=== PATIENT | male | born 1990 | race Caucasian/White ===

== ENCOUNTER 2016-11-07 09:08 | Observation (INO) | payer OTHER ==
[2016-11-07] MEDS ORDERED: PROTONIX 40 MG IV IV ONE ×2 (09:33→10:11)
[2016-11-07] MEDS ORDERED: Zofran 4 MG/2 ML VIAL IV ONE (09:33)
[2016-11-07] MEDS ORDERED: Sodium Chloride 0.9% 1000 ML 1,000 ML IV STA (09:33)
[2016-11-07] MEDS ORDERED: Hydromorphone 1 mg/ml Ampule IV ONE (09:36)
--- NOTE | 2016-11-07 09:54 | ERPHSYRPT ---
- History of Present Illness Time Seen by Provider: 11/07/16 09:25 Historian: patient Exam Limitations: clinical condition Patient Subjective Stated Complaint: here for upper right abd pain since last night getting worse with nausea and loose stools, no fever Triage Nursing Assessment: pt walked in, alert , skin w/d.holding right upper abd, and soft with bsx4 tender to palpate to upper right quad Physician History: PATIENT WITH HISTORY OF DEPRESSION AND HYPERTENSION COMPLAINS OF ACUTE ONSET OF SHARP RIGHT UPPER ABDOMINAL PAINS CONSTANT SINCE EARLIER THIS AM, PAIN RADIATES TO BACK ASSOCIATED WITH LOOSE STOOLS AND NAUSEA. Timing/Duration: today Activities at Onset: none Quality: stabbing Abdominal Pain Onset Location: RUQ Pain Radiation: back Severity of Pain-Max: severe Severity of Pain-Current: severe Modifying Factors: Improves With: eating Associated Symptoms: diarrhea, nausea Previous symptoms: no prior history Allergies/Adverse Reactions: penicillin G Allergy (Verified 11/07/16 09:19) Sulfa (Sulfonamide Antibiotics) Allergy (Verified 11/07/16 09:19) Home Medications: Cetirizine HCl [Zyrtec] 10 mg PO DAILY 05/08/13 [History] Fluoxetine HCl [Prozac] 40 mg PO DAILY 05/08/13 [History] Lisinopril [Zestril] 20 mg PO DAILY 08/16/15 [History] Omeprazole 20 MG [Prilosec 20 mg] 20 mg PO BID 09/05/15 [History] Buspirone HCl [Buspar] 10 mg DAILY 11/07/16 [History] Loratadine 10 mg [Claritin 10 mg] 10 mg DAILY 11/07/16 [History] Hx Tetanus, Diphtheria Vaccination/Date Given: No Hx Influenza Vaccination/Date Given: No Hx Pneumococcal Vaccination/Date Given: No Immunizations Up to Date: Yes - Review of Systems Constitutional: No Fever, No Chills Eyes: No Symptoms Ears, Nose, & Throat: No Symptoms Respiratory: No Cough, No Dyspnea Cardiac: No Symptoms, No Chest Pain, No Edema, No Syncope Abdominal/Gastrointestinal: Abdominal Pain, Nausea, Diarrhea, No Vomiting Genitourinary Symptoms: No Symptoms, No Dysuria Musculoskeletal: No Symptoms, No Back Pain, No Neck Pain Skin: No Rash Neurological: No Dizziness, No Focal Weakness, No Sensory Changes Psychological: No Symptoms Endocrine: No Symptoms All Other Systems: Reviewed and Negative - Past Medical History Pertinent Past Medical History: Yes Neurological History: No Pertinent History ENT History: Other Cardiac History: Hypertension Respiratory History: Asthma Endocrine Medical History: No Pertinent History Musculoskeletal History: No Pertinent History GI Medical History: GERD, Ulcer History: Other Psycho-Social History: Depression Male Reproductive Disorders: No Pertinent History Other Medical History: allergies, - getting ear tubes eventually. hx kidney stones x2 - Past Surgical History Past Surgical History: Yes Neuro Surgical History: No Pertinent History Cardiac: No Pertinent History Respiratory: No Pertinent History Gastrointestinal: No Pertinent History Genitourinary: No Pertinent History Musculoskeletal: No Pertinent History Male Surgical History: No Pertinent History Other Surgical History: wisdon teeth,warts on rectum. - Social History Smoking Status: Current every day smoker How long have you smoked: 12 Exposure to second hand smoke: Yes Drug Use: none Patient Lives Alone: No - Nursing Vital Signs Nursing Vital Signs: Initial Vital Signs Temperature 97.2 F Temperature Source Oral Pulse Rate 72 Respiratory Rate 16 Blood Pressure [] 144/92 Pain Intensity 6 - Physical Exam General Appearance: no apparent distress, alert Eye Exam: PERRL/EOMI, eyes nml inspection Ears, Nose, Throat Exam: normal ENT inspection, pharynx normal, moist mucous membranes Neck Exam: normal inspection, non-tender, supple, full range of motion Respiratory Exam: normal breath sounds, lungs clear, No respiratory distress Cardiovascular Exam: regular rate/rhythm, normal heart sounds Gastrointestinal/Abdomen Exam: soft, normal bowel sounds, tenderness (THERE IS MARKED RIGHT UPPER QUADRANT TENDERNESS WITH GUARDING), No mass Back Exam: normal inspection, normal range of motion, No CVA tenderness, No vertebral tenderness Extremity Exam: normal inspection, normal range of motion, pelvis stable Neurologic Exam: alert, oriented x 3, cooperative, normal mood/affect, nml cerebellar function, sensation nml, No motor deficits Skin Exam: normal color, warm, dry SpO2 Interpretation: normal SpO2: 98 Oxygen Delivery: Room Air - CT Exams Abdomen/Pelvis CT Interpretation: Discussed w/radiologist (NEGATIVE CT ABDOMEN/PELVIS) Ordered Tests: Active Orders 24 hr Category Date Time Status Up Ad Na ROUTINE Activity 11/07/16 11:16 Ordered Admission/Status Order ROUTINE Care 11/07/16 11:13 Ordered Call Admit Doctor for Orders ON ADMISSION Care 11/07/16 11:13 Ordered Clean Catch Urine Specimen STAT Care 11/07/16 09:33 Active Code Status Order ROUTINE Care 11/07/16 11:13 Ordered IV Care Q6H Care 11/07/16 11:13 Ordered IV Insertion STAT Care 11/07/16 09:33 Active Vital Signs Q4H Care 11/07/16 11:13 Ordered NPO Diet 11/07/16 11:14 Ordered Regular Diet Diet 11/07/16 Dinner Ordered ABDOMEN AND PELVIS W CONTRAST [CT] Stat Exams 11/07/16 09:33 Completed AMYLASE Stat Lab 11/07/16 09:25 Completed BLOOD CULTURE Stat Lab 11/07/16 09:50 Received CBC W DIFF Stat Lab 11/07/16 09:25 Completed CMP Stat Lab 11/07/16 09:25 Completed LIPASE Stat Lab 11/07/16 09:25 Completed UA W/ MICROSCOPIC Stat Lab 11/07/16 09:25 Completed Transfer Order Routine Transfer 11/07/16 11:12 Ordered Medication Summary Generic Name Dose Route Start Last Admin Trade Name Freq PRN Reason Stop Dose Admin Sodium Chloride 1,000 mls @ 500 mls/hr 11/07/16 09:33 11/07/16 10:17 Sodium Chloride 0.9% 1000 Ml IV 11/07/16 11:32 500 mls/hr .Q2H STA Administration Sodium Chloride 1,000 mls @ 100 mls/hr 11/07/16 11:30 Sodium Chloride 0.9% 1000 Ml IV 12/07/16 11:29 .Q10H SARAHI Morphine Sulfate 4 mg 11/07/16 11:20 Morphine Sulfate 4 Mg Inj IV 11/12/16 11:19 Q4H PRN PRN PAIN Ondansetron HCl 4 mg 11/07/16 11:17 Zofran 4 Mg/2 Ml Vial IV 12/07/16 11:16 Q4HPRN PRN NAUSEA Pantoprazole Sodium 40 mg 11/07/16 11:30 Protonix 40 Mg Iv IV 12/07/16 11:29 Q24H SARAHI Discontinued Medications Generic Name Dose Route Start Last Admin Trade Name Freq PRN Reason Stop Dose Admin Al Hydrox/Mg Hydrox/Simethicone Confirm 11/07/16 10:50 Maalox Es 30 Ml Unit Dose Administered 11/07/16 10:51 Dose 30 ml .ROUTE .STK-MED ONE Belladonna Alkaloids/Phenobarbital 60 ml 11/07/16 10:43 11/07/16 10:55 Gi Cocktail 60ml (Belladonn/Phenobarb/Lidoc* PO 11/07/16 10:44 60 ml STAT ONE Administration Belladonna Alkaloids/Phenobarbital Confirm 11/07/16 10:51 Donnatol Liquid Administered 11/07/16 10:52 Dose 64.8 mg .ROUTE .STK-MED ONE Hydromorphone HCl 1 mg 11/07/16 09:36 11/07/16 10:17 Hydromorphone 1 Mg/Ml Ampule IV 11/07/16 09:37 1 mg STAT ONE Administration Hydromorphone HCl Confirm 11/07/16 10:12 Hydromorphone 1 Mg/Ml Ampule Administered 11/07/16 10:13 Dose 1 mg .ROUTE .STK-MED ONE Sodium Chloride Confirm 11/07/16 10:12 Sodium Chloride 0.9% 1000 Ml Administered 11/07/16 10:13 Dose 1,000 mls @ ud .ROUTE .STK-MED ONE Ketorolac Tromethamine 30 mg 11/07/16 10:43 11/07/16 10:54 Toradol 30 Mg Injection IV 11/07/16 10:44 30 mg STAT ONE Administration Ketorolac Tromethamine Confirm 11/07/16 10:49 Toradol 30 Mg Injection Administered 11/07/16 10:50 Dose 30 mg .ROUTE .STK-MED ONE Lidocaine HCl Confirm 11/07/16 10:50 Xylocaine Hcl Viscous * Administered 11/07/16 10:51 Dose 20 ml .ROUTE .STK-MED ONE Ondansetron HCl 4 mg 11/07/16 09:33 11/07/16 10:17 Zofran 4 Mg/2 Ml Vial IV 11/07/16 09:34 4 mg STAT ONE Administration Ondansetron HCl Confirm 11/07/16 10:11 Zofran 4 Mg/2 Ml Vial Administered 11/07/16 10:12 Dose 4 mg .ROUTE .STK-MED ONE Pantoprazole Sodium 40 mg 11/07/16 09:33 11/07/16 10:17 Protonix 40 Mg Iv IV 11/07/16 09:34 40 mg STAT ONE Administration Pantoprazole Sodium Confirm 11/07/16 10:11 Protonix 40 Mg Iv Administered 11/07/16 10:12 Dose 40 mg IV .STK-MED ONE Lab/Rad Data: Laboratory Result Diagrams 11/07/16 09:25 11/07/16 09:25 Laboratory Results 11/07/16 11/07/16 11/07/16 Range/Units 09:25 09:25 09:25 WBC 12.6 H (4.0-10.5) K/mm3 RBC 4.86 (4.1-5.6) M/mm3 Hgb 15.2 (12.5-18.0) gm/dl Hct 44.7 (42-50) % MCV 92.0 (78-100) fl MCH 31.3 (26-32) pg MCHC 34.0 (32-36) g/dl RDW 13.9 (11.5-14.0) % Plt Count 180 (150-450) K/mm3 MPV 12.9 H (6-9.5) fl Gran % 54.5 (36.0-66.0) % Lymphocytes % 36.3 (24.0-44.0) % Monocytes % 6.8 (0.0-12.0) % Eosinophils % 2.2 (0.00-5.0) % Basophils % 0.2 (0.0-0.4) % Basophils # 0.03 (0-0.4) Sodium 141 (136-145) mEq/L Potassium 4.0 (3.5-5.1) mEq/L Chloride 105 (98-107) mEq/L Carbon Dioxide 23.3 (21-32) mEq/L Anion Gap 16.5 H (5-15) MEQ/L BUN 16 (9-20) mg/dL Creatinine 0.91 (0.55-1.30) mg/dl Estimated GFR > 60 ML/MIN Glucose 102 (70-110) MG/DL Calcium 9.4 (8.5-10.1) mg/dL Total Bilirubin 0.30 (0.2-1.0) mg/dL AST 18 (15-37) U/L ALT 34 (12-78) U/L Alkaline Phosphatase 67 (46-116) U/L Serum Total Protein 8.1 (6.4-8.2) gm/dL Albumin 4.3 (3.4-5.0) g/dL Amylase 31 (25-115) U/L Lipase 118 (73-393) U/L Ur Collection Type VOID Urine Color YELLOW (YELLOW) Urine Appearance CLEAR (CLEAR) Urine pH 5.0 (5-6) Ur Specific [place] 1.030 (1.005-1.025) Urine Protein NEGATIVE (Negative) Urine Ketones NEGATIVE (NEGATIVE) Urine Blood 50 (0-5) Eduard/ul Urine Nitrite NEGATIVE (NEGATIVE) Urine Bilirubin NEGATIVE (NEGATIVE) Urine Urobilinogen NORMAL (0-1) mg/dL Ur Leukocyte Esterase NEGATIVE (NEGATIVE) Urine Microscopic RBC 0-2 (0-2) /HPF Urine Bacteria RARE (NEGATIVE) /HPF Urine Mucus MODERATE (NEGATIVE) /HPF Urine Glucose NEGATIVE (NEGATIVE) mg/dL Specimen Received 11/07/16 1005 - Progress Progress Note: 11/07/16 11:05 PATIENT GIVEN IV NORMAL SALINE 500ML/HR, ZOFRAN 4MG, PROTONIX 40MG IV AND DILAUDID 1MG, HAD RECURRENCE OF PAIN, ADMINISTERED TORADOL 30MG IV AND GI COCKTAIL Discussed with : Kedar (DISCUSSED WITH DR LEUNG AT 1100 FOR OBSERVATION) Counseled pt/family regarding: lab results, diagnosis, need for follow-up - Departure Time of Disposition: 11:25 Departure Disposition: Observation Clinical Impression: ACUTE GASTRITIS Condition: Stable Critical Care Time: No Referrals: KATARZYNA LEUNG [Primary Care Provider] -
[2016-11-07 10:09] LABS: BASOPHIL % 0.2 % (0.0-0.4); Eosinophil % 2.2 % (0.00-5.0); Granulocytes % 54.5 % (36.0-66.0); Lymphocytes % 36.3 % (24.0-44.0); Mean Corpuscular Hemoglobin 31.3 pg (26-32); Mean Platelet Volume 12.9 fl (6-9.5); Monocytes % 6.8 % (0.0-12.0); Platelet Count 180 K/mm3 (150-450); Red Blood Count 4.86 M/mm3 (4.1-5.6); Red Cell Distribution Width 13.9 % (11.5-14.0); White Blood Count 12.6 K/mm3 (4.0-10.5)
[2016-11-07] MEDS ORDERED: Zofran 4 MG/2 ML VIAL ONE (10:11)
[2016-11-07] MEDS ORDERED: Sodium Chloride 0.9% 1000 ML 1,000 ML ONE (10:12)
[2016-11-07] MEDS ORDERED: Hydromorphone 1 mg/ml Ampule ONE (10:12)
[2016-11-07 10:17] LABS: ADD URINE CULTURE? NO (NO); Bacteria RARE /HPF (NEGATIVE); Bilirubin NEGATIVE (NEGATIVE); Blood 50 Ery/ul (0-5); COMPLETE URINE MICROSCOPIC? YES; Collection Type VOID; Glucose NEGATIVE (NEGATIVE); Leukocyte Esterase NEGATIVE (NEGATIVE); Mucus MODERATE /HPF (NEGATIVE)
--- NOTE | 2016-11-07 10:27 | XRAY ---
Indication: Right abdominal pain. Multiple contiguous axial images obtained through the abdomen and pelvis using 80 cc Isovue 370 contrast only. Comparison: May 08, 2013. Lung bases clear. Heart is not enlarged. Noncontrasted stomach and bowel loops appear nonobstructed. Normal appendix. No free fluid/air. Remaining liver, gallbladder, pancreas, spleen, adrenal glands, kidneys, ureters, bladder, and aorta appear normal in CT appearance and attenuation. No pathologic retroperitoneal lymphadenopathy. Osseous structures intact. Impression: Negative CT abdomen/pelvis with contrast exam. CT DI 27.80
[2016-11-07 10:32] LABS: ALBUMIN 4.3 g/dL (3.4-5.0); ALKALINE PHOSPHATASE 67 U/L (46-116); ANION GAP 16.5 MEQ/L (5-15); BLOOD UREA NITROGEN 16 mg/dL (9-20); CHLORIDE 105 mEq/L (98-107); Carbon Dioxide 23.3 mEq/L (21-32); Glucose 102 MG/DL (70-110); LIPASE 118 U/L (73-393); SGOT/AST 18 U/L (15-37); SGPT/ALT 34 U/L (12-78); SODIUM 141 mEq/L (136-145); Total Protein 8.1 gm/dL (6.4-8.2)
[2016-11-07] MEDS ORDERED: GI COCKTAIL 60ML (Belladonn/Phenobarb/Lidoc PO ONE (10:43)
[2016-11-07] MEDS ORDERED: TORAdol 30 mg Injection IV ONE (10:43)
[2016-11-07] MEDS ORDERED: TORAdol 30 mg Injection ONE (10:49)
[2016-11-07] MEDS ORDERED: MAALOX ES 30 ML UNIT DOSE ONE (10:50)
[2016-11-07] MEDS ORDERED: XYLOCAINE HCl Viscous ONE (10:50)
[2016-11-07] MEDS ORDERED: Donnatol Liquid ONE (10:51)
[2016-11-07] MEDS ORDERED: Zofran 4 MG/2 ML VIAL IV PRN (11:17)
[2016-11-07] MEDS ORDERED: MORPHINE SULFATE 4 MG INJ IV PRN (11:20)
[2016-11-07] MEDS: Sodium Chloride 0.9% 1000 ML 1,000 ML IV SCH ×2 (12:42→23:06)
[2016-11-07] MEDS: Zestril 20 MG PO SCH (12:43)
[2016-11-07] MEDS ORDERED: Nicoderm CQ 21 MG TOP SCH (14:15)
[2016-11-07] MEDS ORDERED: PROTONIX 40 MG IV IV SCH (16:15)
[2016-11-07] MEDS ORDERED: Protonix 40MG Tablet PO SCH (22:00)
[2016-11-07] MEDS ORDERED: TYLENOL 325 MG PO PRN (23:32)
[2016-11-08 05:45] LABS: BASOPHIL % 0.4 % (0.0-0.4); Granulocytes % 46.7 % (36.0-66.0); Lymphocytes % 42.2 % (24.0-44.0); Mean Cell Volume 92.3 fl (78-100); Mean Corpuscular Hemoglobin 30.4 pg (26-32); Mean Platelet Volume 11.9 fl (6-9.5); Monocytes % 7.7 % (0.0-12.0); Platelet Count 170 K/mm3 (150-450); Red Blood Count 4.15 M/mm3 (4.1-5.6); Red Cell Distribution Width 13.7 % (11.5-14.0); White Blood Count 7.7 K/mm3 (4.0-10.5)
[2016-11-08 06:26] LABS: ALBUMIN 3.4 g/dL (3.4-5.0); ALKALINE PHOSPHATASE 51 U/L (46-116); ANION GAP 8.9 MEQ/L (5-15); BLOOD UREA NITROGEN 12 mg/dL (9-20); CHLORIDE 108 mEq/L (98-107); Carbon Dioxide 29.6 mEq/L (21-32); Glucose 87 MG/DL (70-110); LIPASE 109 U/L (73-393); Potassium 4.1 mEq/L (3.5-5.1); SGOT/AST 20 U/L (15-37); SGPT/ALT 12 U/L (12-78); SODIUM 142 mEq/L (136-145); Total Protein 6.4 gm/dL (6.4-8.2)
--- NOTE | 2016-11-08 07:09 | PCM.DCORD ---
- Discharge Discharge Date: 11/08/16 Disposition: Home, Self-Care Condition: Stable Prescriptions: Continue Fluoxetine HCl [Prozac] 40 mg PO DAILY Omeprazole 20 MG [Prilosec 20 mg] 20 mg PO BID Loratadine 10 mg [Claritin 10 mg] 10 mg PO DAILY Buspirone HCl [Buspar] 10 mg PO DAILY Famotidine 20 mg [Pepcid 20 MG] 40 mg PO DAILY Fluticasone Propionate [Flonase NASAL] 1 spray NS DAILY Additional Instructions: Please continue your home medications. Advance diet as tolerated. please follow up in one week. Follow up with: KATARZYNA LEUNG [Primary Care Provider] -
[2016-11-08 08:25] VITALS: BP 129/73; PULSE 64; O2SAT 96
--- NOTE | 2016-11-08 08:45 | SSS ---
DISCHARGE DIAGNOSIS: EPIGASTRIC PAIN ETIOLOGY UNDETERMINED. HISTORY OF PRESENT ILLNESS: The patient is a 26 year-old white male patient who awoke with severe epigastric pain on the morning of 11/07/2016. He presented himself to the emergency room and subsequently admitted to the hospital due to severity of pain for evaluation and management. PAST MEDICAL/SURGICAL HISTORY: Significant for having had his gallbladder evaluated by ultrasound and HIDA one year ago. HOSPITAL COURSE: The patient reports that in the interim between last year and now he had no problems whatsoever until the compliance advisor of 11/07/2016. After his presentation to the emergency room and admission to the hospital he did improve and by the time I saw him in the early afternoon he was already much better. We allowed him to have a liquid diet and through the evening made NPO with the possibility of doing laparoscope on the morning of 11/08/2016. However, he told me he was feeling much better by the morning of 11/08/2016. The patient was allowed to take increase in his diet and having felt no worse at this point he was felt to be okay for discharge home. The patient's medical history is otherwise significant for depression. He is on Paxil that he takes daily and has been quite stable with this. MEDICATIONS: He otherwise takes Zestril for hypertension, omeprazole for gastroesophageal reflux disease, Buspar, Claritin and Zyrtec. ALLERGIES: PENICILLIN, SULFA. PHYSICAL EXAMINATION: Revealed a well nourished, well developed 26 year-old white male patient currently in no distress. His most recent emergency room vital signs showed temperature 97.2F oral, pulse 72, respiratory rate 16, blood pressure 144/92. HEENT: Normocephalic, atraumatic. Pupils equal round reactive to light. Extraocular movements intact. Oropharynx is pink and moist. NECK: Supple without lymphadenopathy, thyromegaly or JVD. CHEST: Clear to auscultation with good air movement bilaterally. HEART: Regular rate and rhythm without murmurs, rubs or gallops. ABDOMEN: Tender in the epigastric region. No guarding or rebound was noted at the time of my evaluation. The emergency room doctor noted that there was guarding present during his exam. There were no palpable masses felt. EXTREMITIES: Without clubbing, cyanosis or edema. NEUROLOGIC: The patient is alert and oriented x3. No focal deficits noted. LAB DATA AND TESTS: Normal UA with specific gravity of 1.030. Normal metabolic panel. Amylase and lipase were normal. CBC showed slight elevation of white blood cell count of 12,600, hemoglobin 15.2, PLT count 180,000. CT scan abdomen and pelvis was read as negative. ASSESSMENT: A patient with epigastric pain unknown etiology resolved at this time. The patient will be allowed to discharge home. Continue his usual home medication, follow up in the office if he has any further problems in the interim. He is to call or return if he has recurrence of the severe abdominal pain that he had previously.
[2016-11-08] MEDS: Zestril 20 MG PO SCH (09:11)
[2016-11-08] MEDS ORDERED: NON-FORMULARY ITEM (Fluoxetine Hcl [Prozac] 40 MG) PO SCH (10:00)
[2016-11-08] MEDS ORDERED: Prozac 20 MG PO SCH (10:00)
[2016-11-08] MEDS ORDERED: PROTONIX 40 MG IV IV SCH ×2 (10:00)
[2016-11-08] MEDS ORDERED: Pepcid 20 MG PO SCH (10:00)
[2016-11-08] MEDS ORDERED: Flonase NASAL NS SCH (10:00)
[2016-11-08] MEDS ORDERED: CLARITIN 10 MG PO SCH (10:00)
[2016-11-08] MEDS ORDERED: BUSPAR 5 MG PO SCH (10:00)
== END 2016-11-08 10:35 | disposition home or self-care (01) ==
LOC: ED 09:08 → MED SURG 11:49
PROVIDERS: ADMIT Family Medicine; ATTEND Family Medicine
DX: R10.13 Epigastric pain (principal); I10 Essential (primary) hypertension; K21.9 Gastro-esophageal reflux disease without esophagitis
CPT/HCPCS: 36000; 36415; 74177; 80053; 81000; 82150; 83690; 85025; 87040; 96360; 96374; 96375; 99285; G0378; J1170; J1885; J2270; J2405; A9270-GY

== ENCOUNTER 2016-12-10 05:37 | Emergency (ER) | payer OTHER ==
[2016-12-10 05:51] VITALS: O2SAT 97
[2016-12-10] MEDS ORDERED: Pepcid 20 MG VIAL IV ONE ×2 (06:02→06:06)
[2016-12-10] MEDS ORDERED: Hydromorphone 1 mg/ml Ampule IV ONE (06:02)
[2016-12-10] MEDS ORDERED: Hydromorphone 1 mg/ml Ampule ONE (06:07)
[2016-12-10] MEDS ORDERED: Sodium Chloride 0.9% 1000 ML 1,000 ML ONE (06:07)
[2016-12-10] MEDS ORDERED: BENADRYL 50 MG/ML IV ONE (06:09)
--- NOTE | 2016-12-10 06:09 | ERPHSYRPT ---
- History of Present Illness Historian: patient, family (mom) Exam Limitations: clinical condition Patient Subjective Stated Complaint: pt states he started having abd pain around 0300. states he has had this kind of pain previously and was hospitalized Triage Nursing Assessment: pt alert and oriented, answers questions approp. skin pink warm and dry. lungs cta. abd soft and nontender, bowel osunds present. pt c/o pain in ruq radiating to epigastric area. Physician History: Approximately 3 AM patient has severe onset of upper abdominal quadrant pain that became more generalized. Initially had no nausea after ER admission developed some. Pain did radiate straight to his back. No diarrhea. No fever chills. Patient had pizza prior to this episode. Patient was admitted with severe abdominal pain very similar to this approximately one month ago and discharged for outpatient workup which did not materialize. No recent abdominal trauma. No fever or chills.NEGATIVE cat SCAN AT THAT TIME.PREVIOUS HISTORY OF PEPTIC ULCER DISEASE AND GERD. Timing/Duration: today Activities at Onset: none Quality: aching, burning, cramping, stabbing, throbbing Abdominal Pain Onset Location: RUQ, epigastric Pain Radiation: back (upper) Severity of Pain-Max: severe Severity of Pain-Current: severe Modifying Factors: Improves With: lying down, movement, palpation, position Associated Symptoms: No diarrhea, No fever/chills, No loss of appetite, No nausea, No vomiting, No weakness Previous symptoms: same symptoms as today Allergies/Adverse Reactions: penicillin G Allergy (Verified 12/10/16 05:51) Swelling Sulfa (Sulfonamide Antibiotics) Allergy (Verified 12/10/16 05:51) Swelling Home Medications: Fluoxetine HCl [Prozac] 40 mg PO DAILY 05/08/13 [History] Omeprazole 20 MG [Prilosec 20 mg] 20 mg PO BID 09/05/15 [History] Buspirone HCl [Buspar] 10 mg PO DAILY 11/07/16 [History] Famotidine 20 mg [Pepcid 20 MG] 40 mg PO DAILY 11/07/16 [History] Fluticasone Propionate [Flonase NASAL] 1 spray NS DAILY 11/07/16 [History] Loratadine 10 mg [Claritin 10 mg] 10 mg PO DAILY 11/07/16 [History] Hx Tetanus, Diphtheria Vaccination/Date Given: No Hx Influenza Vaccination/Date Given: No Hx Pneumococcal Vaccination/Date Given: No - Review of Systems Constitutional: No Symptoms Eyes: No Symptoms Ears, Nose, & Throat: No Symptoms, Throat Swelling Cardiac: No Symptoms Abdominal/Gastrointestinal: Abdominal Pain, Nausea, No Vomiting, No Diarrhea, No Constipation, No Hematemesis, No Appetite Changes Genitourinary Symptoms: No Symptoms Musculoskeletal: No Symptoms Skin: No Symptoms Neurological: No Symptoms Psychological: No Symptoms Endocrine: No Symptoms Hematologic/Lymphatic: No Symptoms Immunological/Allergic: No Symptoms - Past Medical History Pertinent Past Medical History: Yes Neurological History: No Pertinent History ENT History: Other Cardiac History: Hypertension Respiratory History: Asthma Endocrine Medical History: No Pertinent History Musculoskeletal History: No Pertinent History GI Medical History: GERD, Ulcer History: Other Psycho-Social History: Depression Male Reproductive Disorders: No Pertinent History Other Medical History: allergies, - getting ear tubes eventually. hx kidney stones x2 - Past Surgical History Past Surgical History: Yes Neuro Surgical History: No Pertinent History Cardiac: No Pertinent History Respiratory: No Pertinent History Gastrointestinal: No Pertinent History Genitourinary: No Pertinent History Musculoskeletal: No Pertinent History Male Surgical History: No Pertinent History Other Surgical History: wisdon teeth,warts on rectum. - Social History Smoking Status: Current every day smoker How long have you smoked: 13 Exposure to second hand smoke: Yes Drug Use: none Patient Lives Alone: Yes - Nursing Vital Signs Nursing Vital Signs: Initial Vital Signs Temperature 97.7 F 12/10/16 05:44 Pulse Rate 75 12/10/16 05:44 Respiratory Rate 24 12/10/16 05:44 Blood Pressure 187/113 12/10/16 05:44 O2 Sat by Pulse Oximetry 97 12/10/16 05:44 Pain Scale Pain Intensity 4 - Physical Exam General Appearance: severe distress, obese Eye Exam: PERRL/EOMI Ears, Nose, Throat Exam: normal ENT inspection Neck Exam: normal inspection Respiratory Exam: normal breath sounds, lungs clear Cardiovascular Exam: regular rate/rhythm, normal heart sounds, normal peripheral pulses Gastrointestinal/Abdomen Exam: tenderness (DIFFUSE UPPER ABDOMINAL TENDERNESS MORE EPIGASTRIC AND RIGHT, POSITIVE Benson SIGN), guarding ( MILD GUARDING), No rebound, No hernia Male Genitalia Exam: normal genitalia (NO REBOUND OR RIGIDITY. nO HERNIA) Rectal Exam: deferred Back Exam: normal inspection, normal range of motion, No CVA tenderness Extremity Exam: normal inspection, normal range of motion Neurologic Exam: alert, oriented x 3, cooperative, carton stamper II-XII nml as tested Skin Exam: normal color, warm, dry SpO2 Interpretation: normal SpO2: 97 Oxygen Delivery: Room Air Ordered Tests: Active Orders 24 hr Category Date Time Status IV Insertion STAT Care 12/10/16 06:02 Active NPO (ED) STAT Care 12/10/16 06:02 Active AMYLASE Stat Lab 12/10/16 06:10 Completed CBC W DIFF Stat Lab 12/10/16 06:10 Completed CMP Stat Lab 12/10/16 06:10 Completed LIPASE Stat Lab 12/10/16 06:10 Completed Medication Summary Generic Name Dose Route Start Last Admin Trade Name Freq PRN Reason Stop Dose Admin Sodium Chloride 1,000 mls @ 125 mls/hr 12/10/16 06:15 12/10/16 06:08 Sodium Chloride 0.9% 1000 Ml IV 01/09/17 06:14 125 mls/hr .Q8H SARAHI Administration Discontinued Medications Generic Name Dose Route Start Last Admin Trade Name Freq PRN Reason Stop Dose Admin Al Hydrox/Mg Hydrox/Simethicone Confirm 12/10/16 08:01 Maalox Es 30 Ml Unit Dose Administered 12/10/16 08:02 Dose 30 ml .ROUTE .STK-MED ONE Belladonna Alkaloids/Phenobarbital 60 ml 12/10/16 07:51 12/10/16 08:04 Gi Cocktail 60ml (Belladonn/Phenobarb/Lidoc* PO 12/10/16 07:52 60 ml STAT ONE Administration Belladonna Alkaloids/Phenobarbital Confirm 12/10/16 08:02 Donnatol Liquid Administered 12/10/16 08:03 Dose 64.8 mg .ROUTE .STK-MED ONE Diphenhydramine HCl 25 mg 12/10/16 06:09 12/10/16 06:13 Benadryl 50 Mg/Ml IV 12/10/16 06:10 25 mg STAT ONE Administration Diphenhydramine HCl Confirm 12/10/16 06:12 Benadryl 50 Mg/Ml Administered 12/10/16 06:13 Dose 50 mg .ROUTE .STK-MED ONE Famotidine 20 mg 12/10/16 06:02 12/10/16 06:08 Pepcid 20 Mg Vial IV 12/10/16 06:03 20 mg STAT ONE Administration Famotidine Confirm 12/10/16 06:06 Pepcid 20 Mg Vial Administered 12/10/16 06:07 Dose 20 mg IV .STK-MED ONE Hydromorphone HCl 1 mg 12/10/16 06:02 12/10/16 06:08 Hydromorphone 1 Mg/Ml Ampule IV 12/10/16 06:03 1 mg STAT ONE Administration Hydromorphone HCl Confirm 12/10/16 06:07 Hydromorphone 1 Mg/Ml Ampule Administered 12/10/16 06:08 Dose 1 mg .ROUTE .STK-MED ONE Lidocaine HCl Confirm 12/10/16 08:01 Xylocaine Hcl Viscous * Administered 12/10/16 08:02 Dose 20 ml .ROUTE .STK-MED ONE Ondansetron HCl Confirm 12/10/16 06:10 Zofran 4 Mg/2 Ml Vial Administered 12/10/16 06:11 Dose 4 mg .ROUTE .STK-MED ONE Lab/Rad Data: Laboratory Result Diagrams 12/10/16 06:10 12/10/16 06:10 Laboratory Results 12/10/16 12/10/16 Range/Units 06:10 06:10 WBC 11.1 H (4.0-10.5) K/mm3 RBC 4.36 (4.1-5.6) M/mm3 Hgb 13.4 (12.5-18.0) gm/dl Hct 40.1 L (42-50) % MCV 92.0 (78-100) fl MCH 30.7 (26-32) pg MCHC 33.4 (32-36) g/dl RDW 14.1 H (11.5-14.0) % Plt Count 211 (150-450) K/mm3 MPV 11.7 H (6-9.5) fl Gran % 51.5 (36.0-66.0) % Lymphocytes % 39.0 (24.0-44.0) % Monocytes % 6.9 (0.0-12.0) % Eosinophils % 2.3 (0.00-5.0) % Basophils % 0.3 (0.0-0.4) % Basophils # 0.03 (0-0.4) Sodium 143 (136-145) mEq/L Potassium 3.8 (3.5-5.1) mEq/L Chloride 107 (98-107) mEq/L Carbon Dioxide 26.3 (21-32) mEq/L Anion Gap 13.9 (5-15) MEQ/L BUN 15 (9-20) mg/dL Creatinine 0.97 (0.55-1.30) mg/dl Estimated GFR > 60 ML/MIN Glucose 110 (70-110) MG/DL Calcium 9.3 (8.5-10.1) mg/dL Total Bilirubin 0.20 (0.2-1.0) mg/dL AST 20 (15-37) U/L ALT 40 (12-78) U/L Alkaline Phosphatase 58 (46-116) U/L Serum Total Protein 7.8 (6.4-8.2) gm/dL Albumin 4.0 (3.4-5.0) g/dL Amylase 31 (25-115) U/L Lipase 110 (73-393) U/L - Progress Progress: improved, re-examined Progress Note: 12/10/16 08:01Patient markedly improved, had no recurrence of his symptoms over past month following suspect diet until he had pizza last evening. Lab results negative. Patient had extensive gallbladder workup here before that was negative including HIDA scan. We'll treat with GI cocktail at this time and hopefully discharge soon thereafter. 12/10/16 08:15Patient with no abdominal pain at this time after GI cocktail and previous treatment. Discharged at this time see discharge diagnosis and instructions with emphasis on follow up. - Departure Time of Disposition: 08: Departure Disposition: Home Clinical Impression: Peptic ulcer disease Abdominal pain Qualifiers: Abdominal location: epigastric Qualified Code(s): R10.13 - Epigastric pain Acute gastritis Qualifiers: Gastritis type: other gastritis Gastritis bleeding: without bleeding Qualified Code(s): K29.00 - Acute gastritis without bleeding GERD (gastroesophageal reflux disease) Qualifiers: Esophagitis presence: esophagitis presence not specified Qualified Code(s): K21.9 - Gastro-esophageal reflux disease without esophagitis Condition: Stable Critical Care Time: No Referrals: KATARZYNA THACKER [Primary Care Provider] - Instructions: Rand Diet, Gastroesophageal Reflux Disease (GERD), Abdominal Pain-Adult, Peptic Ulcer, GERD Diet Additional Instructions: "Continue with her medications and follow your diet strictly. Follow with Dr. Thacker as soon as possible for further evaluation treatment and possible referral/consultation gastroenterology if you so desire.return to ER for any significant concerns or issues.
[2016-12-10] MEDS ORDERED: Zofran 4 MG/2 ML VIAL ONE (06:10)
[2016-12-10] MEDS ORDERED: BENADRYL 50 MG/ML ONE (06:12)
[2016-12-10 06:13] LABS: BASOPHIL % 0.3 % (0.0-0.4); Eosinophil % 2.3 % (0.00-5.0); Granulocytes % 51.5 % (36.0-66.0); Mean Corpuscular Hemoglobin 30.7 pg (26-32); Mean Platelet Volume 11.7 fl (6-9.5); Monocytes % 6.9 % (0.0-12.0); Platelet Count 211 K/mm3 (150-450); Red Blood Count 4.36 M/mm3 (4.1-5.6); Red Cell Distribution Width 14.1 % (11.5-14.0); White Blood Count 11.1 K/mm3 (4.0-10.5)
[2016-12-10] MEDS ORDERED: Sodium Chloride 0.9% 1000 ML 1,000 ML IV SCH (06:15)
[2016-12-10 06:49] LABS: ALKALINE PHOSPHATASE 58 U/L (46-116); ANION GAP 13.9 MEQ/L (5-15); BLOOD UREA NITROGEN 15 mg/dL (9-20); CHLORIDE 107 mEq/L (98-107); Carbon Dioxide 26.3 mEq/L (21-32); Glucose 110 MG/DL (70-110); LIPASE 110 U/L (73-393); Potassium 3.8 mEq/L (3.5-5.1); SGOT/AST 20 U/L (15-37); SGPT/ALT 40 U/L (12-78); SODIUM 143 mEq/L (136-145); Total Protein 7.8 gm/dL (6.4-8.2)
[2016-12-10] MEDS ORDERED: GI COCKTAIL 60ML (Belladonn/Phenobarb/Lidoc PO ONE (07:51)
[2016-12-10] MEDS ORDERED: MAALOX ES 30 ML UNIT DOSE ONE (08:01)
[2016-12-10] MEDS ORDERED: XYLOCAINE HCl Viscous ONE (08:01)
[2016-12-10] MEDS ORDERED: Donnatol Liquid ONE (08:02)
[2016-12-10 08:34] VITALS: BP 144/70; PULSE 84
== END 2016-12-10 08:33 | disposition home or self-care (01) ==
LOC: ED 05:37
DX: R10.13 Epigastric pain (principal); K29.00 Acute gastritis without bleeding; K21.9 Gastro-esophageal reflux disease without esophagitis; K27.9 Peptic ulcer, site unspecified, unspecified as acute or chronic, without hemorrhage or perforation
CPT/HCPCS: 36000; 36415; 80053; 82150; 83690; 85025; 96360; 96361; 96374; 96375; 99284; J1170; J1200; J2405; A9270-GY

== ENCOUNTER 2018-09-11 16:17 | Emergency (ER) | payer OTHER ==
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
[2018-09-11 18:17] VITALS: PULSE 70; O2SAT 98
[2018-09-11 18:24] VITALS: BP 114/72
--- NOTE | 2018-09-11 21:25 | XRAY ---
Indication: Pain following injury 3 days ago. Comparison: None 3 views of the right wrist obtained. No bony, articular, or soft tissue abnormalities.
== END 2018-09-11 18:24 | disposition home or self-care (01) ==
LOC: ED 16:17
DX: S63.501A Unspecified sprain of right wrist, initial encounter (principal); M25.531 Pain in right wrist; W22.09XA Striking against other stationary object, initial encounter
CPT/HCPCS: 73110; 99283

== ENCOUNTER 2021-06-05 05:59 | Day surgery (SDC) | payer OTHER ==
[2021-06-05] MEDS ORDERED: Lactated Ringers 1,000 ML IV ONE (06:26)
[2021-06-05] MEDS: Lactated Ringers 1,000 ML IV SCH (06:31)
[2021-06-05] MEDS ORDERED: Xylocaine-Mpf 2% 5 Ml Vial ONE (07:34)
[2021-06-05] MEDS ORDERED: Versed 2 MG/2 ML Injection ONE (07:34)
[2021-06-05] MEDS ORDERED: DIPRIVAN 200 MG/20 ML IV ONE ×2 (07:34→07:48)
[2021-06-05] MEDS ORDERED: SUBLIMAZE 100 MCG/2 ML ONE (07:34)
[2021-06-05] MEDS ORDERED: XYLOCAINE 1% HCL 20 ML MDV ONE (07:40)
[2021-06-05] MEDS: VANCOMYCIN 2 GRAM/400 ML BAG 2 GM/400 ML PIGGYBACK IV ONE (08:32)
[2021-06-05 09:21] VITALS: BP 160/84; PULSE 74; O2SAT 99
--- NOTE | 2021-06-05 09:25 | OP ---
SURGERY DATE/TIME: 06/05/2021 0734 PREOPERATIVE DIAGNOSIS: Infected sebaceous cyst posterior region of the neck. POSTOPERATIVE DIAGNOSIS: Infected sebaceous cyst posterior region of the neck. PROCEDURE: Incision and drainage and Iodoform packing of the infected sebaceous cyst. SURGEON: Dr. Thacker. ANESTHESIA: MAC. HISTORY: The patient is a 30-year-old white male patient with a sebaceous cyst on the back of his neck which became infected. He was seen in the office and given clindamycin which did not help. He was seen in the [facility] and received Rocephin injection after which it seemed to be somewhat better but when I saw him in the office it was quite edematous on 06/04/2021 and we felt the patient needed to have I&D. The patient was described the risks of the procedure including risk of bleeding and recurrent infection. The patient verbalized his understanding and desired to have the procedure performed. DESCRIPTION OF PROCEDURE: The patient was given the anesthesia by the anesthesia department. He was placed in the left lateral decubitus position. The area is anesthetized further with lidocaine. An incision was made over the center portion of it and a large amount of pus was removed as well as suture material from the wound. It was copiously drained and washed and Iodoform packing was placed into the draining and the dressing is then applied. The patient was allowed to take that to the outpatient area where he will receive Rocephin intravenously 1 gm prior to going home and we will have him come back each day for Iodoform gauze removal and repacking in outpatient surgery.
== END 2021-06-05 10:45 | disposition home or self-care (01) ==
LOC: SDC 05:59
PROVIDERS: ATTEND Family Medicine
DX: L72.3 Sebaceous cyst (principal)
CPT/HCPCS: 87070; 96365; 96366; J2250; J2704; J3010; J3370

== ENCOUNTER 2021-09-06 10:01 | Day surgery (SDC) | payer OTHER ==
--- NOTE | 2021-08-31 11:29 | HP ---
DATE OF SURGERY: 09/06/2021 HISTORY OF PRESENT ILLNESS: The patient presented with a sebaceous cyst of the posterior neck. It has not been infected. He desires removal. PAST MEDICAL HISTORY: Sleep apnea, hypertension, chronic pancreatitis. PAST SURGICAL HISTORY: Ankle surgery. Foot surgery. Cholecystectomy. ALLERGIES: PENICILLIN. SULFA. CIPRO. MEDICATIONS: Prilosec, lisinopril, tramadol, Pepcid, Prozac, amlodipine. FAMILY HISTORY: Heart disease. SOCIAL HISTORY: Former alcohol. REVIEW OF SYSTEMS: CONSTITUTIONAL: Denies fever or chills. CHEST: Denies shortness of breath. CVS: Denies chest pain. ABDOMEN: Denies abdominal pain. PHYSICAL EXAMINATION: GENERAL: No acute distress. CHEST: Nonlabored. No shortness of breath. CVS: Regular rate and rhythm. ABDOMEN: Soft. IMPRESSION: Sebaceous cyst of the posterior neck. PLAN: Excision of posterior neck cyst with Dr. Michael Ortiz. As dictated by Sabrina Houser NP.
[~2021-09-06 10:01] MED LIST: Sensorcaine 0.25% 10 ML ONE
[2021-09-06] MEDS ORDERED: Lactated Ringers 1,000 ML IV SCH (10:30)
[2021-09-06] MEDS ORDERED: Lactated Ringers 1,000 ML IV ONE (10:45)
[2021-09-06] MEDS ORDERED: Reglan 10 MG/2 ML ONE (11:15)
[2021-09-06] MEDS ORDERED: Versed 2 MG/2 ML Injection ONE (11:15)
[2021-09-06] MEDS ORDERED: Pepcid 20 MG VIAL IV ONE (11:15)
[2021-09-06] MEDS ORDERED: Reglan 10 MG/2 ML IV ONE (11:23)
[2021-09-06] MEDS ORDERED: Versed 2 MG/2 ML Injection IV STA (11:23)
[2021-09-06] MEDS: Pepcid 20 MG VIAL IV ONE ×2 (11:24→11:25)
[2021-09-06] MEDS ORDERED: Quelicin Fliptop 200 MG/10 ML ONE (11:51)
[2021-09-06] MEDS ORDERED: Decadron 4 MG INJ ONE (11:51)
[2021-09-06] MEDS ORDERED: Zemuron 100 MG/10 ML ONE (11:51)
[2021-09-06] MEDS ORDERED: Xylocaine-Mpf 2% 5 Ml Vial ONE (11:51)
[2021-09-06] MEDS ORDERED: Zofran 4 MG/2 ML VIAL ONE (11:51)
[2021-09-06] MEDS ORDERED: DIPRIVAN 200 MG/20 ML IV ONE (11:51)
[2021-09-06] MEDS ORDERED: SUBLIMAZE 100 MCG/2 ML ONE (11:51)
[2021-09-06] MEDS ORDERED: Pre-Attached Lta Kit TP ONE (11:57)
[2021-09-06] MEDS ORDERED: CLINDAMYCIN-D5W 900 MG/50 ML*** 900 MG/50 ML BAG IV ONE (12:26)
--- NOTE | 2021-09-06 13:25 | OP ---
SURGERY DATE/TIME: 09/06/2021 1215 PREOPERATIVE DIAGNOSIS: Recurrent sebaceous cyst of the neck. POSTOPERATIVE DIAGNOSIS: Recurrent sebaceous cyst of the neck. PROCEDURE: Removal of a 2 cm recurrent sebaceous cyst through a 4 cm elliptical excision with closure posterior nuchal area. SURGEON: Michael Ortiz M.D. ANESTHESIA: General. COMPLICATIONS: None. CONDITION: Stable. INDICATION: The patient has had this done in the office twice and it did not work. He presents at this time for excision. DESCRIPTION OF PROCEDURE: He was taken to surgery. Left lateral decubitus position. General anesthetic. Routine prep and drape. The area was marked. It was elliptically excised about 4 x 1 cm. It was taken down 2 cm deep. Hemostasis obtained with electrocautery. All of the cyst wall was removed. Hemostasis obtained with electrocautery. It was approximated with three vertical mattress sutures of 3-0 Prolene. Sterile compressive dressing applied. The patient tolerated the procedure satisfactorily.
[2021-09-06 13:52] VITALS: PULSE 81
[2021-09-06 14:07] VITALS: BP 143/97; O2SAT 98
== END 2021-09-06 14:18 | disposition home or self-care (01) ==
LOC: SDC 10:01
PROVIDERS: ATTEND Surgery
DX: L72.3 Sebaceous cyst (principal)
CPT/HCPCS: J0330; J1100; J2250; J2405; J2704; J3010